=== PATIENT | male | born 1955 | race Caucasian/White ===

== ENCOUNTER 2018-09-25 23:22 | Inpatient (IN) | payer MEDICAID ==
[~2018-09-25] VITALS: Ht 190.5 cm; Wt 158.0 kg
[2018-09-25 23:36] VITALS: BP 132/54
--- NOTE | 2018-09-25 23:36 | NUR ---
TO BED # 1 AMBULATORY, REPORT GIVEN TO VERONICA DAVID
--- NOTE | 2018-09-25 23:38 | NUR ---
PT PRESENTED ER WITH C/O PAIN TO THE LEGS BIALTERAL X 1 YEAR. PT STATED THAT HE HAS HAD SWELLING BELOW THE KNEES X 1 YEAR BUT STATED THAT NOW THE SWELLING AND REDNESS HAS MOVED UP TO THE THIGHS.PT HAS REDNESS AND EDEMA. TO THE SIGHT. WARM TO TOUCH. PT IS A/O X 4. VSS; PATIENT POSITIONED FOR COMFORT; HOB ELEVATED; BEDRAILS UP X2; BED DOWN. ER MD MADE AWARE OF PT STATUS.
--- NOTE | 2018-09-25 23:38 | NUR ---
PT REFUSED PUTTING ON A HOSPITAL GOWN. MARY SANDHU MADE AWARE.
--- NOTE | 2018-09-26 00:24 | NUR ---
Patient being evaluated by physician at bedside.
[2018-09-26] MEDS ORDERED: KETOROLAC 30 MG/ML VIAL IVP ONE (00:50)
--- NOTE | 2018-09-26 00:55 | NUR ---
PT SITTING UP IN BED, VITALS STABLE.
[2018-09-26] MEDS ORDERED: NICOTINE TRANSD SYS 21 MG/24 HR PATCH TD STA (01:14)
[2018-09-26 01:17] LABS: BASOPHILS % (AUTO) 0.4 % (0.0-2.0); EOSINOPHILS # (AUTO) 0.2 K/uL (0-0.4); EOSINOPHILS % (AUTO) 2.7 % (0.0-4.0); HEMATOCRIT 53.6 % (36-52); HEMOGLOBIN 17.1 g/dL (12.0-18.0); LYMPHOCYTES # (AUTO) 1.3 K/uL (2.0-11.5); LYMPHOCYTES % (AUTO) 16.2 % (20.5-51.1); MEAN CORPUSCULAR HEMOGLOBIN 30 pg (27-31); MEAN CORPUSCULAR HGB CONC 32 g/dL (33-37); MEAN CORPUSCULAR VOLUME 92.8 fL (80-94); MONOCYTES # (AUTO) 1.2 K/uL (0.8-1.0); MONOCYTES % (AUTO) 15.1 % (1.7-9.3); NEUTROPHILS # (AUTO) 5.2 K/uL (1.8-7.7); NEUTROPHILS % (AUTO) 65.6 % (42.2-75.2); PLATELET COUNT (AUTO) 194 K/uL (140-450); RED BLOOD CELL COUNT(AUTO) 5.77 MIL/uL (4.20-6.10); RED CELL DISTRIBUTION WIDTH 15.8 % (11.6-13.7); WHITE BLOOD COUNT (AUTO) 7.9 K/uL (4.8-10.8)
[2018-09-26 01:28] LABS: ANION GAP 10.9 (8-16); CARBON DIOXIDE 28.9 mmol/L (21-32); CREATININE 1.3 mg/dL (0.7-1.3); POTASSIUM 4.8 mmol/L (3.5-5.1)
[2018-09-26] MEDS ORDERED: NICOTINE TRANSD SYS 14 MG/24 HR PATCH TD STA (01:32)
[2018-09-26 01:34] LABS: ALBUMIN 2.8 g/dL (3.4-5.0); TOTAL BILIRUBIN 0.8 mg/dL (0.0-1.0)
[2018-09-26 01:54] LABS: CREATINE KINASE MB 1.5 ng/mL (0-3.6)
[2018-09-26] MEDS ORDERED: FUROSEMIDE 40 MG/4 ML VIAL IVP SCH (02:20)
[2018-09-26] MEDS ORDERED: ASPIRIN 325 MG TAB PO ONE (02:20)
[2018-09-26] MEDS ORDERED: LORazepam 2 MG/ML VIAL IM/IVP PRN (02:30)
[2018-09-26] MEDS ORDERED: ALBUTEROL SULFATE/IPRATROPIU 3 ML SOL IH PRN (02:30)
[2018-09-26] MEDS ORDERED: MORPHINE SULFATE 4 MG/ML SYR IVP PRN (02:30)
[2018-09-26] MEDS ORDERED: HYDROcodone/APAP 5/325 MG 1 TAB TAB PO PRN (02:30)
[2018-09-26] MEDS ORDERED: DOCUSATE SODIUM 100 MG GELCAP PO PRN (02:30)
[2018-09-26] MEDS ORDERED: ONDANSETRON 4 MG/2 ML VIAL IM/IVP PRN (02:30)
[2018-09-26] MEDS ORDERED: ACETAMINOPHEN 325 MG TAB PO PRN (02:30)
[2018-09-26] MEDS ORDERED: NITROGLYCERIN 0.4 MG TAB SL PRN (02:35)
--- NOTE | 2018-09-26 02:50 | NUR ---
Patient will be admitted to care of DR. UP. Admited to TELEMETRY. Will go to room 121 B. Belongings list completed. Report to DEANN DAVID. VITALS STABLE.
--- NOTE | 2018-09-26 02:50 | NUR ---
Pt report given to DEANN DAVID. Transfer of care at this time. VITALS STABLE
--- NOTE | 2018-09-26 03:20 | NUR ---
RECEIVED REPORT FROM MOLASSES PREPARER VERONICA FOR CONTINUITY OF CARE. PT IS A/OX4, ON ROOM AIR. PT AMBULATES WITH STEADY GAIT, AND SKIN IS PINK/WARM/DRY AND INTACT, ALTHOUGH THERE ARE SOME CALLOUSES TO BILATERAL ELBOWS, AND DERMATITIS WITH SOME SCABS TO BILATERAL LOWER EXTREMITIES. PT IS ABLE TO MAKE NEEDS KNOWN, AND ABLE TO FOLLOW COMMANDS. LUNGS SOUNDS VERY DIMINISHED WITH SOME WHEEZING, HR EVEN AND REGULAR. PT HAS 20G IV TO RIGHT WRIST, ASYMPTOMATIC AND INTACT. ABDOMEN IS DISTENDED. PT REFUSES TO TAKE OFF CLOTHES AND WEAR GOWN. MRSA SWAB OBTAINED AND SENT TO LAB. PT DENIES ANY PAIN AT THIS TIME. VITAL SIGNS STABLE. NO SIGNS OF DISTRESS NOTED. PT POSITIONED FOR COMFORT. BED RAILS UP X2, BED IN LOWEST POSITION. CALL LIGHT WITHIN REACH. WILL CONTINUE TO MONITOR.
[2018-09-26 03:22] LABS: CHOL/HDL RATIO 4.8 (1-4.5); PHOSPHORUS 3.4 mg/dL (2.5-4.9); PROTHROMBIN TIME 11.5 secs (10.8-13.4)
[2018-09-26] MEDS: NACL 0.9% 1,000 ML IV SCH (03:30)
[2018-09-26 04:03] VITALS: BP 123/73
[2018-09-26] MEDS ORDERED: HEPARIN PER PHARMACY MC PRN (04:05)
[2018-09-26] MEDS ORDERED: hePARIN / DEXT 5% PREMIX 250 ML IV SCH (04:05)
[2018-09-26] MEDS ORDERED: INFLUENZA VIRUS VACCINE QUAD 0.5 ML SYR IMVAC PRN (04:35)
--- NOTE | 2018-09-26 05:04 | NUR ---
PATIENT'S O2 SATURATION WAS 71% ON ROOM AIR, PULSE 88, BILATERAL WHEEZING. PATIENT AGREED TO WEAR OXIMIZER, HOWEVER, IMMEDIATELY REMOVED IT AND ADAMANTLY REFUSED TO PLACE IT BACK IN HIS NOSE. OFFERED PATIENT OTHER OPTIONS, SUCH A SIMPLE MASK OR NON REBREATHER OR A REGULAR NASAL CANNULA, BUT PATIENT REFUSED. HE STATED HE HAS A SIMILAR DEVICE AT HOME AND DOES NOT WEAR IT. PATIENT MADE AWARE OF THE IMPORTANCE OF OXYGENATION AND STATED HIS IS EXTREMELY LOW. ALSO ATTEMPTED TO PERSUADE PATIENT TO ACCEPT A BREATHING TREATMENT AND THIS WAS REFUSED WELL. WILL CONTINUE TO MONITOR CLOSELY. NURSE CONNOLLY MADE AWARE.
--- NOTE | 2018-09-26 05:10 | NUR ---
INFORMED BY RT THAT PT SATURATING AT 71% ON ROOM AIR BUT IS ASYMPTOMATIC. RT TRIED TO PUT ON MASK AND PT WOULD REFUSE IT. TALKED TO PT AND PT STATES HE IS FINE.
--- NOTE | 2018-09-26 05:45 | NUR ---
SPOKE TO DR DENNIS ABOUT PT SPO2@71% AND PT REFUSING TO USE O2 AND ASYMPTOMATIC.
[2018-09-26] MEDS: hePARIN / DEXT 5% PREMIX 250 ML IV SCH ×2 (05:59→14:23)
--- NOTE | 2018-09-26 06:00 | NUR ---
HEPARIN DRIP STARTED WITH HELP FROM INLAYER SILVER.
--- NOTE | 2018-09-26 07:23 | NUR ---
ENDORSED PT TO DAY SHIFT RN YULIA FOR CONTINUITY OF CARE. PT IN STABLE CONDITION.
[2018-09-26 07:26] LABS: BASOPHILS # (AUTO) 0.1 K/uL (0.00-0.22); BASOPHILS % (AUTO) 0.8 % (0.0-2.0); EOSINOPHILS # (AUTO) 0.2 K/uL (0-0.4); EOSINOPHILS % (AUTO) 2.2 % (0.0-4.0); HEMATOCRIT 53.9 % (36-52); HEMOGLOBIN 17.2 g/dL (12.0-18.0); LYMPHOCYTES # (AUTO) 1.5 K/uL (2.0-11.5); LYMPHOCYTES % (AUTO) 16.3 % (20.5-51.1); MEAN CORPUSCULAR HEMOGLOBIN 30 pg (27-31); MEAN CORPUSCULAR HGB CONC 32 g/dL (33-37); MEAN CORPUSCULAR VOLUME 93.9 fL (80-94); MONOCYTES # (AUTO) 1.8 K/uL (0.8-1.0); MONOCYTES % (AUTO) 19.5 % (1.7-9.3); NEUTROPHILS # (AUTO) 5.8 K/uL (1.8-7.7); NEUTROPHILS % (AUTO) 61.2 % (42.2-75.2); PLATELET COUNT (AUTO) 201 K/uL (140-450); RED BLOOD CELL COUNT(AUTO) 5.74 MIL/uL (4.20-6.10); RED CELL DISTRIBUTION WIDTH 16.2 % (11.6-13.7); WHITE BLOOD COUNT (AUTO) 9.5 K/uL (4.8-10.8)
[2018-09-26 07:41] LABS: MAGNESIUM 2.4 mg/dL (1.8-2.4); PHOSPHORUS 4.4 mg/dL (2.5-4.9)
--- NOTE | 2018-09-26 07:55 | NUR ---
PATIENT WAS AWAKE, ALERT. RESPIRATION WAS LABORED ON ROOM AIR, COMPLAINED OF SOB, SPO2 82%. PATIENT WAS EXPLAINED THE NEED FOR OXYGEN AND THE RISK OF REFUSING. PATIENT VERBALIZED UNDERSTANDING. PATIENT WAS PLACED ON 7L OXIMIZER, SP02 97%. SKIN DRY AND WARM. IV PATENT AND INTACT. DENIED PAIN AT THIS TIME. PLAN OF CARE WAS DISCUSSED WITH PATIENT. BED AT LOW POSITION, SIDE RAILS UP. CALL LIGHT WITHIN REACH
[2018-09-26 08:00] VITALS: BP 102/66
--- NOTE | 2018-09-26 08:30 | NUR ---
PATIENT HAS BEEN SCREENED AND CATEGORIZED MODERATE NUTRITION RISK. PATIENT WILL BE SEEN WITHIN 3-5 DAYS OF ADMISSION. 09/28/18 09/30/[address]
[2018-09-26] MEDS: ALBUTEROL SULFATE/IPRATROPIU 3 ML SOL IH SCH ×3 (08:38→19:00)
[2018-09-26] MEDS: FUROSEMIDE 40 MG/4 ML VIAL IVP SCH ×2 (08:49→16:14)
[2018-09-26] MEDS: LISINOPRIL 5 MG TAB PO SCH (08:50)
[2018-09-26] MEDS: THIAMINE 100 MG TAB PO SCH (08:50)
[2018-09-26] MEDS: MULTIVITAMIN 1 TAB PO SCH (08:50)
[2018-09-26] MEDS: METOPROLOL 25 MG TAB PO SCH ×2 (08:50→20:04)
[2018-09-26] MEDS: ASPIRIN 81 MG TAB.CHEW PO SCH (08:51)
[2018-09-26] MEDS: FOLIC ACID 1 MG TAB PO SCH (08:51)
--- NOTE | 2018-09-26 08:57 | NUR ---
PT REFUSED TO WEAR O2. PT STATED AND REFUSES TO WEAR IT WHILE HE EATS NO MATTER WHAT . I EXPLAINED THE BENEFITS AND INDICATION OF WHY PT NEEDED TO WEAR O2 BUT PT STILL REFUSED. NURSE AWARE.
[2018-09-26 09:12] LABS: ANION GAP 13.8 (8-16); CARBON DIOXIDE 26.6 mmol/L (21-32); CREATININE 1.3 mg/dL (0.7-1.3); POTASSIUM 5.4 mmol/L (3.5-5.1)
--- NOTE | 2018-09-26 09:57 | NUR ---
PATIENT REFUSED TO PUT ON NASAL CANNULA, STATED HE DOES NOT NEED THIS AT THIS TIME, AND ALWAYS HAS BREATHING PROBLEM HIS WHOLE LIFE. EXPLAINED TO PATIENT RISKS OF BEING OFF OXYGEN. PATIENT VERBALIZED UNDERSTANDING, STATED HE WILL PUT IT ON LATER
[2018-09-26 12:00] VITALS: BP 102/56
--- NOTE | 2018-09-26 12:00 | NUR ---
PATIENT WAS AWAKE, ALERT. RESPIRATION EVEN, UNLABOR 4L NC. DENIED PAIN, SOB AT THIS TIME. NO DISTRESS NOTED. CALL LIGHT WITHIN REACH
--- NOTE | 2018-09-26 13:24 | NUR ---
WOUND CARE EVALUATION NOTES: REASON FOR EVALUATION: BILATERAL LE DERMATITIS SKIN ASSESSMENT DONE ON THIS 63 Y/O MALE PATIENT TO [facility], WITH INITIAL DIAGNOSIS OF LEGS PAIN. PAST MEDICAL HISTORY INCLUDE HYPERTENSION AND ASTHMA. ALL ABOVE INFORMATION WAS OBTAINED FROM THE ADMISSION H&P. LABS ARE WBC 9.5, H/H 17.2/53.9 AND GLUCOSE 115. PATIENT IS AWAKE, ORIENTED TO PERSON, PLACE, DATE AND TIME. SKIN WARM TO TOUCH WNL, TOENAILS ARE LONG AND THICKENED, FUNGALLY LOOKING, +1EDEMA, BLE NO HAIR GROWTH, BLE ARE DRY AND FLAKY, WITH FOUL ODOR AND UNABLE TO PALPATE BILATERAL PEDAL PULSES DUE TO THICKEN DEBRIS. PT. REFUSE TO BE CHECKED THE PERINEUM AND STATED EVERYTHING IS OKAY. LEFT ARM PERIPHERAL IV PATENT AND INTACT. ON ROOM AIR. NEEDS ASSISTANCE IN TURNING. INITIAL PLAN OF CARE DISCUSSED WITH PRIMARY RN AND PT. PT. ABLE TO VERBALIZE UNDERSTANDING. INTEGUMENTARY: -BLE DRY AND FLAKY, PENDING ARTERIAL AND VENOUS U/S, NO OPEN WOUNDS -BILATERAL HEELS THICK CALLUS WITH DRY CRACKED LINES RECOMMENDATIONS: -CLEANSE BILATERAL LOWER LEGS/FEET WITH MILD SOAP AND WATER, PAT DRY, APPLY HYDRAGUARD BID AND LEAVE IT OPEN TO AIR -ASSIST TO TURN AND REPOSITION PATIENT Q 2H -ASSESS AND MONITOR SKIN CONDITION DURING POSITION CHANGE. -OFFLOAD BILATERAL HEELS BY PLACING PILLOWS UNDER CALVES AT ALL TIMES, UNLESS OTHERWISE CONTRAINDICATED -PRESSURE REDISTRIBUTION SURFACE THERAPY -PODIATRY CONSULT -BLE ARTERIAL AND VENOUS U/S PENDING RESULTS -KEEP SKIN CLEAN AND DRY AT ALL TIMES. RECOMMENDATIONS DISCUSSED WITH PRIMARY RN WILL FOLLOW UP PATIENT Q7 DAYS AND PRN. PLEASE CONTACT WOUND CARE NURSE FOR ANY QUESTIONS AND CHANGES IN SKIN CONDITION.
--- NOTE | 2018-09-26 14:15 | NUR ---
PATIENT WAS AWAKE, ALERT. RESPIRATION EVEN, UNLABOR ON 4L NC. NO DISTRESS NOTED AT THIS TIME. FAMILY AT BEDSIDE. CALL LIGHT WITHIN REACH
[2018-09-26] MEDS: HYDRAGUARD CREAM TP SCH (14:17)
--- NOTE | 2018-09-26 14:30 | NUR ---
HEPARIN DRIP WAS ADJUSTED PER PROTOCOL
--- NOTE | 2018-09-26 15:23 | NUR ---
DR. DILL WAS MADE AWARE OF POTASSIUM 5.4.
[2018-09-26] MEDS: SODIUM POLYSTYRENE 15 GM/60 ML UDBTL PO SCH ×2 (15:56→16:15)
[2018-09-26 16:00] VITALS: BP 105/71
--- NOTE | 2018-09-26 16:00 | NUR ---
PATIENT WAS AWAKE, ALERT. RESPIRATION EVEN, UNLABOR ON 4L O2. DENIED PAIN, SOB AT THIS TIME. NO DISTRESS NOTED AT THIS TIME. CALL LIGHT WITHIN REACH
[2018-09-26] MEDS ORDERED: DEXTROSE 50% 50 ML SYR IVP ONE (16:25)
[2018-09-26] MEDS ORDERED: INSULIN REGULAR, HUMAN 100 UNIT/ML VIAL IVP ONE (16:25)
--- NOTE | 2018-09-26 16:32 | NUR ---
PATIENT REFUSED KAYAXELATE. DR. DILL WAS MADE AWARE
--- NOTE | 2018-09-26 18:18 | NUR ---
IVS WERE REMOVED FROM LEFT FOREARM AND RIGHT WRIST, CATHETERS INTACT. BLEEDING WERE CONTROLLED. NEW IV WAS INSERTED ON RIGHT HAND. PATIENT TOLERATED WELL
--- NOTE | 2018-09-26 18:39 | NUR ---
PATIENT AWAKE, ALERT, EATING DINNER COMFORTABLY. RESPIRATION EVEN, UNALBOR ON ROOM AIR. PATIENT WAS INSTRUCTED TO PUT ON O2. PATIENT CONTINUED TO REFUSE AT THIS TIME. NO DISTRESS NOTED
--- NOTE | 2018-09-26 19:19 | NUR ---
ENDORSEMENT GIVEN TO POWER TRANSFORMER INSPECTOR NURSE. PATIENT IS STABLE AT THIS TIME
--- NOTE | 2018-09-26 19:19 | NUR ---
RECEIVED BEDSIDE REPORT FROM FRANKIE CAR, PATIENT IN BED, ON 4 L O2 VIA NC, PATIENT REFUSES TO WEAR FALL RISK GOWN, STATES HE IS NOT A FALL RISK. C/O THAT HE HAS PROBLEMS SLEEPING AND WANTS SLEEPING AID. HEPARIN INFUSING IN RIGHT HAND AT 1420 U/HR ACCORDING TO PROTOCOL. NOTED 3 + PITTING EDEMA IN BOTH LOWER LEGS, V/S TAKEN ALL WITHIN BASELINE, DENIES PAIN. CALL LIGHT WITHIN REACH WILL CONTINUE TO MONITOR.
[2018-09-26 20:00] VITALS: BP 109/66
[2018-09-26] MEDS ORDERED: BLOOD GLUCOSE MONITORING 1 DEV DEV FS SCH (20:00)
[2018-09-26] MEDS: ATORVASTATIN 20 MG TAB PO SCH (20:04)
[2018-09-26] MEDS: ZOLPIDEM 5 MG TAB PO PRN (20:04)
--- NOTE | 2018-09-26 20:04 | NUR ---
APTT 29.9 ADJUSTED HEPARIN ACCORDING TO PROTOCOL.
--- NOTE | 2018-09-26 21:00 | NUR ---
DUE MEDICATIONS GIVEN PATIENT TOLERATED WELL.
[2018-09-26] MEDS ORDERED: SODIUM POLYSTYRENE 15 GM/60 ML UDBTL PO SCH (22:00)
--- NOTE | 2018-09-26 22:10 | NUR ---
KAYEXALATE GIVEN FOR K 5.4. WILL CONTINUE TO MONITOR.
[2018-09-27] VITALS: BP 130/78
--- NOTE | 2018-09-27 | NUR ---
PATIENT O2 SAT DROPS FROM 90-88% ADVISED TO WEAR O2. PATIENT REFUSED TO WEAR O2 AND TELE MONITOR. DR DENNIS AWARE.
--- NOTE | 2018-09-27 00:30 | NUR ---
HEPARIN CONTINUING INFUSE AT 1840 UNITS PER HR. WILL CONTINUE TO MONITOR.
[2018-09-27 00:41] LABS: ANION GAP 12.1 (8-16); CARBON DIOXIDE 29.6 mmol/L (21-32); CREATININE 1.1 mg/dL (0.7-1.3); POTASSIUM 4.7 mmol/L (3.5-5.1)
[2018-09-27] MEDS: HYDRAGUARD CREAM TP SCH ×2 (00:53→12:58)
[2018-09-27] MEDS: NACL 0.9% 1,000 ML IV SCH (01:43)
--- NOTE | 2018-09-27 01:45 | NUR ---
PATIENT IN BED, EDUCATION PROVIDED REGARDING WEARING O2 AND TELE BOX, PATIENT STATED "NO ITS NOT NECESSARY".
--- NOTE | 2018-09-27 03:00 | NUR ---
DR DENNIS STATED TO WAIT FOR VALUE OF APTT TO START NEW BAG OF HEPARIN. WILL START ONCE VALUE IS UPDATED.
[2018-09-27 04:00] VITALS: BP 128/70
[2018-09-27] MEDS: hePARIN / DEXT 5% PREMIX 250 ML IV SCH ×2 (04:19→12:32)
--- NOTE | 2018-09-27 04:30 | NUR ---
APTT 40.2 ADJUSTED RATE ACCORDING TO HEPARIN PROTOCOL.
--- NOTE | 2018-09-27 06:13 | NUR ---
PATIENT SOB ADVISED TO PUT ON O2 PATIENT STATED NO I ALREADY TOLD YOU I DONT NEED IT.
--- NOTE | 2018-09-27 07:23 | NUR ---
ENDORSED PATIENT TO DAY SHIFT NURSE, PATIENT STABLE.
--- NOTE | 2018-09-27 07:24 | NUR ---
RECEIVE REPORT FROM THE MANAGER WIND NURSE AT BEDSIDE FOR CONTINUITY OF CARE. PT IS AWAKE AND ORIENTED. INTRODUCED MYSELF AND UPDATED THE BOARD. PT IS SITTING UP ON THE SIDE OF BED WITH FEET DANGLING. PT IS AMBULATORY. SKIN -BLE EDEMATOUS, NON-PITTING. SKIN VERY TIGHT AND DRY. LBM 09/27/18. IV ON R WRIST 20G, HEPARIN DRIP 2050U/HR. NEXT PTT DRAW AT 1030. DR WERNER ON CONSULT FOR OLIGURIA. PER MANAGER WIND, PT REFUSED TELEMONITOR, NC, REFUSES TO LIE DOWN IN BED. WILL CONTINUE TO MONITOR PT.
[2018-09-27] MEDS: ALBUTEROL SULFATE/IPRATROPIU 3 ML SOL IH SCH ×3 (07:47→19:00)
[2018-09-27 07:50] LABS: ANION GAP 13.4 (8-16); CARBON DIOXIDE 27.8 mmol/L (21-32); POTASSIUM 5.2 mmol/L (3.5-5.1)
[2018-09-27 07:52] LABS: PHOSPHORUS 3.8 mg/dL (2.5-4.9)
[2018-09-27 08:00] VITALS: BP 126/77
[2018-09-27] MEDS ORDERED: SODIUM POLYSTYRENE 15 GM/60 ML UDBTL PO SCH (09:00)
[2018-09-27] MEDS: FUROSEMIDE 40 MG/4 ML VIAL IVP SCH (09:32)
[2018-09-27] MEDS: LISINOPRIL 5 MG TAB PO SCH (09:33)
[2018-09-27] MEDS: MULTIVITAMIN 1 TAB PO SCH (09:33)
[2018-09-27] MEDS: METOPROLOL 25 MG TAB PO SCH ×2 (09:33→21:17)
[2018-09-27] MEDS: FOLIC ACID 1 MG TAB PO SCH (09:34)
[2018-09-27] MEDS: THIAMINE 100 MG TAB PO SCH (09:34)
[2018-09-27] MEDS: ASPIRIN 81 MG TAB.CHEW PO SCH (09:34)
--- NOTE | 2018-09-27 09:40 | NUR ---
STUDENT RN AND INSTRUCTOR ADMINISTERED MORNING MEDS. PT TOLERATED WELL. WILL CONTINUE TO MONITOR PT.
--- NOTE | 2018-09-27 09:55 | NUR ---
SENT URINE SAMPLE TO LAB.
--- NOTE | 2018-09-27 10:03 | NUR ---
LAB CAME AND ANI BLOOD, PTT FOR HEPARIN DRIP.
[2018-09-27 10:14] LABS: BASOPHILS # (AUTO) 0.3 K/uL (0.00-0.22); BASOPHILS % (AUTO) 3.8 % (0.0-2.0); EOSINOPHILS # (AUTO) 0.2 K/uL (0-0.4); EOSINOPHILS % (AUTO) 2.3 % (0.0-4.0); HEMOGLOBIN 16.4 g/dL (12.0-18.0); LYMPHOCYTES % (AUTO) 11.6 % (20.5-51.1); MEAN CORPUSCULAR HEMOGLOBIN 30 pg (27-31); MEAN CORPUSCULAR HGB CONC 32 g/dL (33-37); MONOCYTES # (AUTO) 0.9 K/uL (0.8-1.0); MONOCYTES % (AUTO) 10.6 % (1.7-9.3); NEUTROPHILS # (AUTO) 6.3 K/uL (1.8-7.7); NEUTROPHILS % (AUTO) 71.7 % (42.2-75.2); PLATELET COUNT (AUTO) 188 K/uL (140-450); RED BLOOD CELL COUNT(AUTO) 5.54 MIL/uL (4.20-6.10); RED CELL DISTRIBUTION WIDTH 15.6 % (11.6-13.7); WHITE BLOOD COUNT (AUTO) 8.8 K/uL (4.8-10.8)
[2018-09-27 10:37] LABS: APPEARANCE,URINE CLEAR (CLEAR); BILIRUBIN,URINE NEGATIVE (NEGATIVE); BLOOD, URINE NEGATIVE (NEGATIVE); COLOR,URINE YELLOW (YELLOW); LEUKOCYTE ESTERASE ,URINE NEGATIVE (NEGATIVE); NITRITE, URINE NEGATIVE (NEGATIVE); PH,URINE 5.5 (5.0-9.0); UGLUCOSE NEGATIVE (NEGATIVE)
[2018-09-27 10:38] LABS: BARBITURATE, URINE NEG. ng/ml (NEG <=200); BENZODIAZEPINE, URINE NEG. ng/mL (NEG <=200); CANNABINOID, URINE NEG. ng/mL (NEG <=50); COCAINE, URINE NEG. ng/mL (NEG <=300); OPIATE, URINE NEG. ng/mL (NEG <=2000); PHENCYCLIDINE SCREEN,URINE NEG. ng/mL (NEG <=25)
--- NOTE | 2018-09-27 10:57 | NUR ---
PTT IS BACK AT 39.6. CALLED PHARMACIST. SPOKE TO IGGY. PER IGGY, GIVE 3200 HEPARIN BOLUS AND THE CORRECT RATE IS 18.3ML/HR. WILL CHANGE. IGGY WILL NOTIFY
--- NOTE | 2018-09-27 11:25 | NUR ---
ADMINISTERED 3200U OF HEPARIN BOLUS AND DECREASED TO 1840U/HR. PT SLEEPING. WILL CONTINUE TO MONITOR PT. Addendum: 09/27/18 at 1234 by Najma Metzger RN FOR SOME REASON, IT DID NOT GET SAVED. HAD TO RE INPUT WITH DIFFERENT TIME. CORRECT TIME IS 4555.
[2018-09-27 12:00] VITALS: BP 131/67
--- NOTE | 2018-09-27 13:43 | NUR ---
PT IS SITTING UP, VISITING WITH DR Telma PASTOR, TRANSPORTATION ESCORT AND DR. PRETTY, RESIDENT.
--- NOTE | 2018-09-27 14:30 | NUR ---
PT REQUESTING SHOWER. NOTIFIED . ORDER IN. GAVE CLEAN TOWELS AND SHOWER GEL AND NEW GOWN. REMOVED TELE MONITOR, WRAPPED UP THE IV SITE FOR WATERPROOFING. AMBULATED PT TO THE SHOWER. EDUCATED PT RE CALL LIGHT AND TO KEEP SKID PROOF SOCKS ON DURING SHOWER. WILL CONTINUE TO MONITOR PT.
--- NOTE | 2018-09-27 14:44 | NUR ---
ATTEMPTED TO ADMINISTER BREATHING TX FOR 2ND TIME PT IN SHOWER.
--- NOTE | 2018-09-27 15:30 | NUR ---
PT BACK IN BED. REAPPLYING THE HYDROGUARD TO BLE AND HEELS. PT REFUSED TELE MONITOR. PER PT, I'M GOING HOME TOMORROW MORNING. I DON'T WANT IT. NOTIFIED .
--- NOTE | 2018-09-27 15:55 | NUR ---
SPOKE TO DR PRETTY TO CALL SISTER, LAKIA. WHEN SHE SPOKE TO PT EARLIER BEFORE HIS SHOWER, HE WAS NOT ABLE TO EXPLAIN WHAT DR PASTOR HAD GONE OVER. PER PT, "THEY CAN'T DO ANYTHING FOR ME HERE, THEY ONLY TX BABIES." SISTER WOULD LIKE TO KNOW THE PLAN.
[2018-09-27 16:00] VITALS: BP 108/55
[2018-09-27] MEDS ORDERED: METOLAZONE 5 MG TAB PO SCH (16:12)
[2018-09-27] MEDS ORDERED: FUROSEMIDE 20 MG/2 ML VIAL IVP SCH (17:00)
--- NOTE | 2018-09-27 19:00 | NUR ---
HAD AN EXPLOSIVE UNCONTROLLABLE BM AFTER LASIX. PT IN SHOWER. WILL ENDORSE PT TO THE STRUCTURAL SHOP HELPER NURSE.
--- NOTE | 2018-09-27 19:23 | NUR ---
PT REFUSED HHNTX , YING WORK, EVERY THINK
--- NOTE | 2018-09-27 19:34 | NUR ---
ENDORSED PT TO THE KISS SETTER HAND NURSE AT BEDSIDE FOR CONTINUITY OF CARE. ENDORSED TO KISS SETTER HAND RN THAT PT'S RIDE IS COMING AROUND 0900. IF D/C ISN'T READY, HE WILL GO AMA PER PT.
--- NOTE | 2018-09-27 19:35 | NUR ---
RECEIVED PT JUST GOT BACK FROM TAKING A SHOWER, AAOX4, VITAL SIGNS STABLE, SAT-84% ON ROOM AIR, NO RESP DISTRESS NOTED, DENIES PAIN, REFUSED OXYGEN VIA NASAL CANNULA STATED "IM SHEELA, I DON'T NEED THAT", ASK WHY HE IS REFUSING, "I'VE BEEN SHEELA FOR A LONG TIME WITHOUT IT, AND I DON'T LIKE ANYTHING STICKING INTO MY NOSE" OFFERED TO SWITCH TO PEDIATRIC NC OR MASK BUT PT STILL REFUSING, ADVISE TO USE OXYGEN IF HE STARTED HAVING SOB, PT VERBALIZED UNDERSTANDING, PLAN OF CARE DISCUSS, PT REFUSING IVF AT THIS TIME STATING HE DOESN'T NEED IT, SAFETY MEASURES IN PLACE, CALL LIGHT WITHIN IN REACH.
[2018-09-27 20:00] VITALS: BP 102/62
[2018-09-27] MEDS ORDERED: CLINDAMYCIN 600 MG/4 ML VIAL ONE (21:10)
[2018-09-27] MEDS: ATORVASTATIN 20 MG TAB PO SCH (21:15)
[2018-09-27] MEDS: ZOLPIDEM 5 MG TAB PO PRN (21:15)
[2018-09-27] MEDS: CLINDAMYCIN 600 MG in DEXTROSE 5% 50 ML IV SCH (21:16)
--- NOTE | 2018-09-27 21:30 | NUR ---
DUE MEDS ADMINISTERED, CLINDAMYCIN IVPB STARTED WITH EDUCATION PROVIDED, MEDICATED FOR SLEEP WITH AMBIEN PO ORDERED, ALL NEEDS ATTENDED.
--- NOTE | 2018-09-27 22:01 | NUR ---
SEEN PT WENT TO THE TOILET WITH IV LINE DISCONNECTED, 10ML IVPB CLINDAMYCIN REMAINING, WILL RECONNECT THE IV ONCE HIS BACK IN BED, PT REFUSED STATED "I DON'T NEED MORE, I HAD ENOUGH", EXPLAIN RISK AND BENEFITS BUT STILL REFUSING, MONITORED CLOSELY.
[2018-09-28] VITALS: BP 129/73
[2018-09-28] MEDS: HYDRAGUARD CREAM TP SCH (00:17)
--- NOTE | 2018-09-28 00:39 | NUR ---
ROUNDS MADE AWARE, SEEN PT AWAKE SITTING ON SIDE OF BED, NO DISTRESS NOTED, NO NEEDS AT THIS TIME, CONTINUE TO MONITOR CLOSELY.
[2018-09-28] MEDS: NACL 0.9% 1,000 ML IV SCH (02:29)
[2018-09-28 04:00] VITALS: BP 135/69
[2018-09-28] MEDS: CLINDAMYCIN 600 MG in DEXTROSE 5% 50 ML IV SCH (04:17)
[2018-09-28] MEDS ORDERED: CLINDAMYCIN 600 MG/4 ML VIAL ONE (04:19)
--- NOTE | 2018-09-28 04:20 | NUR ---
VITAL SIGNS STABLE, SAT-83%, ENCOURAGE TO PUT ON NASAL CANNULA BUT REFUSED EVEN AFTER EDUCATION PROVIDED REGARDING RISK AND BENEFITS, NO SIGNS OF RESP DISTRESS NOTED, DUE CLINDAMYCIN IVPB ADMINISTERED, COMPRESSION BANDAGE APPLIED TO BLE, TOLERATED WELL, MONITORED CLOSELY.
--- NOTE | 2018-09-28 07:10 | NUR ---
RECEIVED PATIENT AWAKE, SITTING AT THE SIDE OF HIS BED. NO S/S OF DISTRESS NOTED. BLE WRAPPED WITH CLEAN DRESSING. NO IV LINE IN PLACE. PATIENT STATES "IM LEAVING TODAY."
--- NOTE | 2018-09-28 07:25 | NUR ---
PT AWAKE SITTING ON SIDE OF BED, NO DISTRESS NOTED, REPORT GIVEN TO FRANKIE AMBROSIO FOR CONTINUITY OF CARE.
[2018-09-28 08:00] VITALS: BP 108/68
[2018-09-28] MEDS: ALBUTEROL SULFATE/IPRATROPIU 3 ML SOL IH SCH (08:00)
--- NOTE | 2018-09-28 08:01 | NUR ---
PT REFUSED BREATHING TX AT THIS TIME. BENEFITS/INDICATIONS EXPLAINED TO PT AND PT STILL REFUSED. PT NOT SOB AT THIS TIME. NO WHEEZING HEARD ON AUSCULTATION.
--- NOTE | 2018-09-28 08:45 | NUR ---
PATIENT LEFT AMA. DR JOHN EXPLAINED RISKS OF LEAVING AMA. PATIENT VERBALIZED UNDERSTANDING. PATIENT SIGNED AMA PAPER. PATIENT DISCONTINUED HIS IV LINE. PATIENT LEFT WITH ALL HIS BELONGINGS. PATIENT LEFT IN STABLE CONDITION
[2018-09-28] MEDS ORDERED: METOLAZONE 5 MG TAB PO SCH (09:00)
[2018-09-28] MEDS ORDERED: LACTOBACILLUS RHAMNOSUS GG 1 EACH CAP PO SCH (09:00)
[2018-09-28] MEDS ORDERED: CLINDAMYCIN PHOS 600MG/D5W PM 50 ML IV SCH (13:00)
--- NOTE | 2018-10-01 02:00 | NUR ---
TALKED TO ISABELLE THE REPORTING LEAD, RATE WAS RUNNING AT 2050 U/HR, SAME DAY SHIFT NURSE STATED, DOCUMENTATION ON EMAR WAS INCORRECT EITHER NOT SCANNED OR ENTERED PROPERLY. CHARGE NURSE LINCLON AWARE, REPORTING LEAD ISABELLE AWARE, PATIENT UNHARMED.
== END 2018-09-28 08:45 | disposition left against medical advice (07) | DRG 190 ==
LOC: MED 23:22 → MTU 09-26 02:33
PROVIDERS: ADMIT General Practice; ATTEND General Practice
DX: I21.A1 Myocardial infarction type 2 (principal); N17.0 Acute kidney failure with tubular necrosis; E43 Unspecified severe protein-calorie malnutrition; I50.43 Acute on chronic combined systolic (congestive) and diastolic (congestive) heart failure; E11.65 Type 2 diabetes mellitus with hyperglycemia; D68.59 Other primary thrombophilia; E66.01 Morbid (severe) obesity due to excess calories; L03.115 Cellulitis of right lower limb; I24.9 Acute ischemic heart disease, unspecified; F17.200 Nicotine dependence, unspecified, uncomplicated; E78.1 Pure hyperglyceridemia; I87.2 Venous insufficiency (chronic) (peripheral); Z60.2 Problems related to living alone; F12.90 Cannabis use, unspecified, uncomplicated; I11.0 Hypertensive heart disease with heart failure; J45.909 Unspecified asthma, uncomplicated; E87.5 Hyperkalemia; Z53.21 Procedure and treatment not carried out due to patient leaving prior to being seen by health care provider; L03.116 Cellulitis of left lower limb; Z68.38 Body mass index [BMI] 38.0-38.9, adult; Z91.14 Patient's other noncompliance with medication regimen; Z79.899 Other long term (current) drug therapy
CPT/HCPCS: 36415; 70450; 71045; 80048; 80053; 80305; 81003; 82550; 82553; 82948; 83036; 83690; 83735; 83880; 84100; 84134; 84443; 84484; 85025; 85610; 85730; 87081; 93005; 93925; 93970; 94640; 96374; 99285; G0482; J1644; J1815; J1885; J1940; J3490; J7030; J7060; J7620; Q0092

== ENCOUNTER 2019-04-22 14:36 | Inpatient (IN) | payer MEDICAID ==
[~2019-04-22] VITALS: Ht 188 cm; Wt 156.5 kg
[2019-04-22 14:40] VITALS: BP 115/73
--- NOTE | 2019-04-22 14:45 | NUR ---
PT C/O SOB, PALPITATIONS, WEAKNESS, CP STARTING 1 WEEK AGO. PT REPORTS THAT HE HAS A HISTORY OF EDEMA THAT HE TAKES LASIX FOR. PT IS BREATHING LABORED. MOTTLED, EDEMAOUS +3, AND ERYTHEMAOUS SKIN AND SCARES NOTICED ON BOTH LOWER LEGS. ERYTHEMA +3 ON BOTH THIGHS NOTICED. DENIES N/V/D; AAOX4 WITH EVEN AND AMBULATORY WITH [facility] COACH; LUNGS WHEEZING BL; PT DENIES ANY FEVER, CP AT THIS TIME; PATIENT STATES PAIN OF 0/10 AT THIS TIME; VSS; PATIENT POSITIONED FOR COMFORT; HOB ELEVATED; BEDRAILS UP X2; BED DOWN. ER MD MADE AWARE OF PT STATUS.
[2019-04-22] MEDS ORDERED: ALBUTEROL 0.083% 2.5 MG/3 ML NEBU INH ONE (14:55)
[2019-04-22] MEDS ORDERED: MAG SULF 2000 MG/WATER PREMIX 50 ML IV ONE (14:55)
[2019-04-22] MEDS ORDERED: BUMETANIDE 1 MG/4 ML VIAL IV ONE (15:00)
[2019-04-22 15:15] VITALS: BP 110/63
--- NOTE | 2019-04-22 15:15 | NUR ---
PLACED ON BIPAP TO MASK WITH SETTINGS NOTED ORDERED BY ELENA RIVERA
[2019-04-22 15:17] LABS: HEMOGLOBIN 17.2 g/dL (12.0-18.0); MEAN CORPUSCULAR HEMOGLOBIN 29 pg (27-31)
--- NOTE | 2019-04-22 15:17 | NUR ---
UNABLE TO EDIT RATE 15 I-TOME 0.85 Addendum: 04/22/19 at 1837 by Jeremy Andrea RT TOME = TIME
--- NOTE | 2019-04-22 15:19 | NUR ---
[facility] THERAPY AND RESPIRATORY DRUG GIVEN IN LINE ORDERED
[2019-04-22] MEDS ORDERED: FURO-570 PO (15:25)
[2019-04-22] MEDS ORDERED: LISI-420 PO (15:26)
[2019-04-22 15:30] LABS: HEMATOCRIT 53.8 % (36-52); MEAN CORPUSCULAR HGB CONC 32 g/dL (33-37); MEAN CORPUSCULAR VOLUME 90.3 fL (80-94); PLATELET COUNT (AUTO) 143 K/uL (140-450); RED BLOOD CELL COUNT(AUTO) 5.95 MIL/uL (4.20-6.10); RED CELL DISTRIBUTION WIDTH 17.8 % (11.6-13.7); WHITE BLOOD COUNT (AUTO) 8.5 K/uL (4.8-10.8)
[2019-04-22 15:34] LABS: ANION GAP 11.6 (8-16); CARBON DIOXIDE 28.5 mmol/L (21-32); CREATININE 1.1 mg/dL (0.7-1.3); POTASSIUM 4.1 mmol/L (3.5-5.1)
[2019-04-22 15:45] LABS: TOTAL BILIRUBIN 1.3 mg/dL (0.0-1.0)
[2019-04-22 15:48] LABS: EOSINOPHILS % (MANUAL) 2 % (0-4); LYMPHOCYTES % (MANUAL) 18 % (20-46); MONOCYTES % (MANUAL) 11 % (5-12)
[2019-04-22] MEDS: ONDANSETRON 4 MG/2 ML VIAL IVP ONE ×2 (15:55→16:57)
[2019-04-22] MEDS ORDERED: LIDOCAINE JELLY 2% 30 ML TUBE TP ONE (15:55)
[2019-04-22] MEDS ORDERED: MORPHINE SULFATE 2 MG/ML SYR IVP ONE (15:55)
--- NOTE | 2019-04-22 16:00 | NUR ---
PT URINATED 480 CC, YELLOW CLEAR URINE.
--- NOTE | 2019-04-22 16:07 | NUR ---
PT DOES NOT WISH TO HAVE DEWITT INSERTED. MARY SANDHU MADE AWARE AND OK W/ NO DEWITT. PT GIVEN URINAL TO VOID.
--- NOTE | 2019-04-22 16:30 | NUR ---
PT REQUESTS ICE CHIPS, ER OKAYED, PT TOLERATING.
[2019-04-22] MEDS ORDERED: ALBUTEROL SULFATE/IPRATROPIU 3 ML SOL IH PRN (17:10)
[2019-04-22] MEDS ORDERED: LORazepam 2 MG/ML VIAL IM/IVP PRN (17:10)
[2019-04-22] MEDS ORDERED: ONDANSETRON 4 MG/2 ML VIAL IM/IVP PRN (17:10)
[2019-04-22] MEDS ORDERED: DOCUSATE SODIUM 100 MG GELCAP PO PRN (17:10)
[2019-04-22] MEDS ORDERED: ACETAMINOPHEN 325 MG TAB PO PRN (17:10)
[2019-04-22 17:41] LABS: PROTHROMBIN TIME 11.9 secs (10.8-13.4)
--- NOTE | 2019-04-22 17:42 | NUR ---
Pt transferred to Tele BED 119A via BED WITH FRANKIE SANDOVAL .
--- NOTE | 2019-04-22 17:45 | NUR ---
TRANSFERRED PATIENT TO [facility] 119-B ON BIPAP TO MASK WITH OXYGEN CONNECTED E-TANK (ADEQUATE PSI LEVELS) TOLERATED WELL WITHOUT INCIDENT SATURATION 99% HR 87
[2019-04-22 17:50] VITALS: BP 113/70
--- NOTE | 2019-04-22 17:50 | NUR ---
PATIENT WAS TRANSFERRED FROM ER. REPORT WAS GIVEN AT BEDSIDE. PATIENT WAS AWAKE, ALERT, AMBULATED SELF TO BED. PATIENT REFUSED TO HAVE BIPAP MASK ON, 3L OXYGEN VIA NC WAS PUT ON. SKIN DRY AND WARM. IV PATENT AND INTACT. COMPLAINED OF BLE PAIN 7/10, WILL MEDICATE PER ORDER. PATIENT WAS ORIENTED TO ROOM, STAFF, AND CALL LIGHT. PLAN OF CARE WAS DISCUSSED WITH PATIENT. BED AT LOW POSITION, SIDE RAILS UP. CALL LIGHT WITHIN REACH
--- NOTE | 2019-04-22 17:50 | NUR ---
Patient will be admitted Telemetry. Will go to room 119A. Belongings list completed. Report to FRANKIE Stokes.
[2019-04-22 17:51] LABS: MAGNESIUM 1.7 mg/dL (1.8-2.4); PHOSPHORUS 2.8 mg/dL (2.5-4.9); THYROID STIMULATING HORMONE 1.9 uIU/mL (0.34-3.74)
--- NOTE | 2019-04-22 17:53 | NUR ---
AWAKE AND ALERT PATIENT REQUEST OFF BIPAP BREAK AT THIS TIME NO SIGNIFICANT SOB NOTED PLACED ON SUPPLEMENTAL OXYGEN AT 3 LPM VIA NC SATURATION 96%
[2019-04-22] MEDS: MORPHINE SULFATE 2 MG/ML SYR IVP PRN (18:20)
--- NOTE | 2019-04-22 18:48 | NUR ---
CONSENT FOR CT CHEST WAS OBTAINED AT BEDSIDE SIGNED BY PATIENT
--- NOTE | 2019-04-22 19:24 | NUR ---
ENDORSEMENT GIVEN TO COMBINATION MACHINE TOOL OPERATOR NURSE. PATIENT IS STABLE AT THIS TIME
[2019-04-22] MEDS: NACL 0.9% 250 ML IV SCH (19:25)
--- NOTE | 2019-04-22 19:25 | NUR ---
RECEIVED PT FROM ALEJANDRO DAVID PT OBESE AAOX4 AMBULATORY ON TELEMETRY SR, ON BIBPAP IPAP10/EPAP 5 NOT SOB NOTED, BLE EDEMA AND MULTIPLES OPEN WOUNDS AND SCABS EDEMA 2+, IV ON RT AC PATENT, PT IS ORIENTED TO THE FLOOR CALL LIGHT WITHIN REACH
[2019-04-22 20:00] VITALS: BP 115/80
[2019-04-22] MEDS: methylPREDNISolone SS 40 MG/ML VIAL IVP SCH (20:40)
[2019-04-22] MEDS: HYDROcodone/APAP 5/325 MG 1 TAB TAB PO PRN (20:40)
[2019-04-22 20:54] LABS: APPEARANCE,URINE CLEAR (CLEAR); BILIRUBIN,URINE NEGATIVE (NEGATIVE); BLOOD, URINE NEGATIVE (NEGATIVE); COLOR,URINE YELLOW (YELLOW); LEUKOCYTE ESTERASE ,URINE NEGATIVE (NEGATIVE); NITRITE, URINE NEGATIVE (NEGATIVE); UGLUCOSE NEGATIVE (NEGATIVE)
[2019-04-22] MEDS ORDERED: FUROSEMIDE 40 MG/4 ML VIAL IVP ONE (21:00)
--- NOTE | 2019-04-22 21:00 | NUR ---
PT ON BIAPAP ON TELMETRY SR NOT DISTRESS NOTED VOIDING WELL
[2019-04-22 21:22] LABS: BARBITURATE, URINE NEG. ng/ml (NEG <=200); BENZODIAZEPINE, URINE NEG. ng/mL (NEG <=200); CANNABINOID, URINE NEG. ng/mL (NEG <=50); COCAINE, URINE NEG. ng/mL (NEG <=300); OPIATE, URINE NEG. ng/mL (NEG <=2000); PHENCYCLIDINE SCREEN,URINE NEG. ng/mL (NEG <=25)
[2019-04-22] MEDS: ALBUTEROL SULFATE/IPRATROPIU 3 ML SOL IH SCH (23:50)
[2019-04-23] VITALS (7 sets, daily range): BP systolic 101–124; BP diastolic 60–81
--- NOTE | 2019-04-23 | NUR ---
PT HAS BEEN MO;NITORING CLOSE ON BIPAP NOT SOB NOTED GETTING SLEEP
[2019-04-23] MEDS ORDERED: MAG SULF 2000 MG/WATER PREMIX 50 ML IV ONE (01:55)
--- NOTE | 2019-04-23 03:00 | NUR ---
SPONGE BATH GIVEN LINEN CHANGED REPOSITIONED Q2H NOT FEVER VSS
[2019-04-23] MEDS: methylPREDNISolone SS 40 MG/ML VIAL IVP SCH ×3 (05:43→20:22)
--- NOTE | 2019-04-23 06:00 | NUR ---
PT AWAKE, REPOSITIONED Q2H NOT SOB NOTED PT WILL BE ENDORSED TO DAY SHIF NURSE FOR CONTINUITY OF CARE
[2019-04-23 06:49] LABS: ANION GAP 10.1 (8-16); CARBON DIOXIDE 32.7 mmol/L (21-32); POTASSIUM 4.8 mmol/L (3.5-5.1)
[2019-04-23 07:02] LABS: CHOL/HDL RATIO 2.1 (1-4.5); MAGNESIUM 2.3 mg/dL (1.8-2.4); PHOSPHORUS 3.8 mg/dL (2.5-4.9)
--- NOTE | 2019-04-23 07:20 | NUR ---
RECEIVED BEDSIDE REPORT FROM DAM ATTENDANT NURSE. PATIENT IS AWAKE, ALERT AND ORIENTEDX4. NO SIGNS OF DISTRESS ON BIPAP. SKIN HAS SCABS AND EDEMA BLE, LLE WOUND. ELEVATED LEGS ON PILLOWS. PATIENT HAS WEAKNESS, FALL RISK PROTOCOL IN PLACE. PATIENT NEEDS LARGE GOWN NO LARGE YELLOW GOWNS AVAILABLE AT THIS TIME, PATIENT REFUSES TO WEAR SOCKS ALSO. IV ON R AC 20G SL. CLEAN, DRY AND INTACT. POSTED SIGN OF 1.5 L FLUID RESTRICTION. PATIENT IS CONTINENT, URINAL AT BEDSIDE. BED IN LOW POSITION. CALL LIGHT WITHIN REACH. WILL CONTINUE TO MONITOR THE PATIENT.
[2019-04-23] MEDS: ALBUTEROL SULFATE/IPRATROPIU 3 ML SOL IH SCH ×3 (07:27→19:47)
[2019-04-23 08:10] LABS: BASOPHILS % (AUTO) 0.1 % (0.0-2.0); EOSINOPHILS % (AUTO) 0.2 % (0.0-4.0); HEMOGLOBIN 17.3 g/dL (12.0-18.0); LYMPHOCYTES # (AUTO) 0.4 K/uL (2.0-11.5); LYMPHOCYTES % (AUTO) 8.9 % (20.5-51.1); MEAN CORPUSCULAR HEMOGLOBIN 29 pg (27-31); MEAN CORPUSCULAR HGB CONC 31 g/dL (33-37); MEAN CORPUSCULAR VOLUME 91.8 fL (80-94); MONOCYTES # (AUTO) 0.3 K/uL (0.8-1.0); MONOCYTES % (AUTO) 6.8 % (1.7-9.3); NEUTROPHILS # (AUTO) 3.5 K/uL (1.8-7.7); PLATELET COUNT (AUTO) 160 K/uL (140-450); RED BLOOD CELL COUNT(AUTO) 5.99 MIL/uL (4.20-6.10); RED CELL DISTRIBUTION WIDTH 17.5 % (11.6-13.7); WHITE BLOOD COUNT (AUTO) 4.1 K/uL (4.8-10.8)
--- NOTE | 2019-04-23 08:59 | NUR ---
CALLED [facility] CT SCAN SPOKE WITH KERRY REGARDING THE CT ANGIO PER TRAY IF PATIENT IS LARGE ON THE ABDOMEN HE WON'T FIT IN THEIR MACHINE , CHECKED AND CLARIFIED WITH [employer] TOOLS PROGRAMMER PT IS LARGE SIZE ON THE ABDOMEN AND WONT FIT . NOTIFIED DR ROSE AND WILL F/U.
[2019-04-23] MEDS ORDERED: LACTOBACILLUS RHAMNOSUS GG 1 EACH CAP PO SCH (09:00)
[2019-04-23] MEDS ORDERED: FUROSEMIDE 40 MG/4 ML VIAL IVP SCH ×3 (09:00→22:00)
[2019-04-23] MEDS ORDERED: AZITHROMYCIN 250 MG TAB PO SCH (09:00)
[2019-04-23] MEDS ORDERED: LISINOPRIL 20 MG TAB PO SCH (09:00)
--- NOTE | 2019-04-23 09:20 | NUR ---
PATIENT HAS BEEN SCREENED AND CATEGORIZED HIGH NUTRITION RISK. PATIENT WILL BE SEEN WITHIN 1-2 DAYS OF ADMISSION. 04/23/19-04/24/[address]
--- NOTE | 2019-04-23 09:56 | NUR ---
ADMINISTERED MEDS. EDUCATED ON SIDE EFFECTS. PATIENT TOLERATED WELL. WILL CONTINUE TO MONITOR THE PATIENT
--- NOTE | 2019-04-23 10:04 | NUR ---
I RECEIVED A CALL FROM [facility] SPOKE WITH ETHAN REGARDING THE HIGHER LEVEL OF CARE, PROVIDE DR ROSE'S CELL PHONE AND UPDATE PT INFORMATION WELL.
--- NOTE | 2019-04-23 10:20 | NUR ---
IV LEAKING. REMOVED, TIP INTACT. PLACED NEW IV ON R FA 22G. WILL CONTINUE TO MONITOR THE PATIENT.
[2019-04-23] MEDS: MORPHINE SULFATE 2 MG/ML SYR IVP PRN ×2 (10:58→20:23)
--- NOTE | 2019-04-23 11:07 | NUR ---
ULTRASOUND TECHS AT BEDSIDE. WILL CONTINUE TO MONITOR THE PATIENT
--- NOTE | 2019-04-23 11:14 | NUR ---
I RECEIVED A CALL FROM [facility] SPOKE WITH GORAN AND PROVIDE THE MEASUREMENT OF THE ABDOMEN 37 INCHES AND SHE WILL CALL BACK
--- NOTE | 2019-04-23 11:18 | NUR ---
GORAN FROM [facility] STATED THEIR CT SCAN FLIGHT ATTENDANT RAMP ACCOMMODATE ONLY 30 INCHES AND THEY CAN NOT ACCEPT PATIENT.
--- NOTE | 2019-04-23 12:00 | NUR ---
VITALS ARE STABLE. WILL CONTINUE TO MONITOR THE PATIENT.
[2019-04-23] MEDS: HYDROcodone/APAP 5/325 MG 1 TAB TAB PO PRN (13:41)
[2019-04-23] MEDS ORDERED: AZIT500P1 IV (13:55)
[2019-04-23] MEDS ORDERED: ROC1PM IV (13:55)
[2019-04-23] MEDS ORDERED: LAS20I IVP (13:55)
[2019-04-23] MEDS ORDERED: METH40PD15 IVP (13:55)
--- NOTE | 2019-04-23 14:07 | NUR ---
ADMINISTERED PRN PAIN MED AND AMI MEDS. EDUCATED ON SIDE EFFECTS. PATIENT TOLERATING WELL. WILL CONTINUE TO MONITOR THE PATIENT
--- NOTE | 2019-04-23 14:30 | NUR ---
I RECEIVED A CALL FROM [facility] SPOKE WITH [facility] STATED THEY NEED A RETURN AGREEMENT SIGNED BY THE BUSINESS SERVICES OFFICER. THE AGREEMENT SIGNED BY ABILIO CHEATHAM AND FAXED BACK TO [facility].
--- NOTE | 2019-04-23 15:36 | NUR ---
04/23/19 RD INITIAL ASSESSMENT COMPLETED PLEASE REFER TO NUTRITION ASSESSMENT UNDER CARE ACTIVITY FOR ESTIMATED NUTRITIONAL NEEDS. 1. CONTINUE CARDIAC DIET TOLERATED 2. ENCOURAGED PT TO PURCHASE LOW SODIUM CANNED FOODS, INSTEAD OF REGULAR CANNED FOODS 3. ENCOURAGED PT TO READ LABELS OF HOT SAUCES, AND CHOOSE THE PRODUCT THAT CONTAINS < 5% OF SODIUM PER SERVING 3. RD TO FOLLOW-UP 3-5 DAYS, MODERATE RISK [address]
--- NOTE | 2019-04-23 16:00 | NUR ---
PATIENT RELAXING IN BED. NO SIGNS OF DISTRESS. BED IN LOW POSITION. CALL LIGHT WITHIN. WILL CONTINUE TO MONITOR THE PATIENT
--- NOTE | 2019-04-23 16:28 | NUR ---
CHECKED WITH GLENN LAM ,SPOKE WITH [facility] AND ACCEPTED PATIENT AND WAITING FOR THE BED. PER RATNA THEY WILL CALL WHEN THEY HAVE A BED , ARRANGED A TRANSPORT WITH [facility] AND PLACE IT WILL CALL , NOTIFIED HECTOR GEOLOGY INSTRUCTOR.
[2019-04-23] MEDS: NACL 0.9% 250 ML IV SCH (17:28)
--- NOTE | 2019-04-23 17:29 | NUR ---
PATIENT IS HUNGRY. HE WANTS TO ASK DR ROSE IF HE CAN HAVE SOMETHING TO EAT AT THIS TIME. I WILL ASK HER AGAIN BUT PATIENT NPO FOR CT SCAN AT [facility]
--- NOTE | 2019-04-23 18:45 | NUR ---
PER DR CHENG PATIENT STILL NEEDS TO BE NPO. DID BLADDER SCAN, NO URINARY RETENTION AT THIS TIME
--- NOTE | 2019-04-23 19:17 | NUR ---
gave bedside report to night supervisor nurse. patient endorsed in stable condition
--- NOTE | 2019-04-23 19:18 | NUR ---
RECEIVED BEDSIDE REPORT FROM DAY SHIFT NURSE. PATIENT IS AWAKE, ALERT AND ORIENTEDX4. NO SIGNS OF DISTRESS ON BIPAP. SKIN HAS SCABS AND EDEMA BLE, LLE WOUND. ELEVATED LEGS ON PILLOWS. FALL PRECAUTION IN PLACE. IV ON RFA 20G SL. CLEAN, DRY AND INTACT. PATIENT IS CONTINENT, USING URINAL. BED IN LOW POSITION. CALL LIGHT WITHIN REACH. WILL CONTINUE TO MONITOR THE PATIENT.
--- NOTE | 2019-04-23 20:14 | NUR ---
BOB WHITE ROSS FURNACE OPERATOR RADHA CALLED WITH ROOM UNIT 6100, ROOM 6109 BED 1, CALL REPORT TO NURSE AT [phone], CALL RADHA WITH [facility] TIME ([phone] OPTION 2, OPTION 3)
--- NOTE | 2019-04-23 20:23 | NUR ---
PT C/O PAIN ON MARTIN LEG 06/06. GIVEN MORPHINE DR. ORDERED. SOLU-MEDROL AND ROCEPHIN GIVEN DR. ORDERED. PT TOLERATED WELL. WILL CONTINUE TO MONITOR.
--- NOTE | 2019-04-23 21:13 | NUR ---
GIVEN LASIX DR. ORDERED. PT TOLERATED WELL.
--- NOTE | 2019-04-23 21:25 | NUR ---
PT WILL BE TRANSFER TO [facility] FOR HIGHER CARE, PT NEEDS CHEST CT AND PT DOES NOT FIT TO CT SCAN. REPORT GIVEN TO [facility] RN, FEBRUARY.
--- NOTE | 2019-04-23 22:50 | NUR ---
LOULOU CAME AND TOOK PT TO TRANSFER TO [facility] UNDER DR. BLACK, UNIT#[id number], ROOM# 6109 BED1. REMOVE GOWN AND PROVIDE PINK GOWN AND BLANKET. LEFT IV SITE SL. PT ON 3LPM NC. PT ABLE TO AMBULATE FROM [facility] BED TO [facility]. ENDORSED PT TO NIKOLE JAMIL. PT IN STABLE CONDITION.
--- NOTE | 2019-04-24 07:58 | NUR ---
WOUND CONSULT NOT DONE, PT. DISCHARGED.
[2019-04-24] MEDS ORDERED: FUROSEMIDE 40 MG/4 ML VIAL IVP SCH (09:00)
== END 2019-04-23 22:50 | disposition short-term general hospital (02) | DRG 720 ==
LOC: MED 14:36 → MTU 17:09 → UNDOADMIN 17:09 → MTU 17:50
PROVIDERS: ADMIT General Practice; ATTEND General Practice
PROC: 5A09357 Assistance with Respiratory Ventilation, Less than 24 Consecutive Hours, Continuous Positive Airway Pressure (ICD-10-PCS; principal; 2019-04-22)
DX: A41.9 Sepsis, unspecified organism (principal); I21.A1 Myocardial infarction type 2; J96.21 Acute and chronic respiratory failure with hypoxia; I50.43 Acute on chronic combined systolic (congestive) and diastolic (congestive) heart failure; J18.9 Pneumonia, unspecified organism; I27.81 Cor pulmonale (chronic); I11.0 Hypertensive heart disease with heart failure; E44.1 Mild protein-calorie malnutrition; I42.9 Cardiomyopathy, unspecified; E66.01 Morbid (severe) obesity due to excess calories; G47.33 Obstructive sleep apnea (adult) (pediatric); F17.210 Nicotine dependence, cigarettes, uncomplicated; E86.0 Dehydration; J96.22 Acute and chronic respiratory failure with hypercapnia; J44.1 Chronic obstructive pulmonary disease with (acute) exacerbation; E83.42 Hypomagnesemia; Z68.41 Body mass index [BMI] 40.0-44.9, adult; Z79.899 Other long term (current) drug therapy; Z91.19 Patient's noncompliance with other medical treatment and regimen; Z82.3 Family history of stroke; Z82.49 Family history of ischemic heart disease and other diseases of the circulatory system
CPT/HCPCS: 36415; 36600; 71045; 80048; 80053; 80305; 81003; 82803; 83036; 83605; 83690; 83735; 83880; 84100; 84443; 84484; 85025; 85610; 85730; 87040; 87081; 93005; 93925; 93970; 94640; 94660; 96365; 96375; 97110; 97161-GP; 97530; 99291; 99292; J0696; J1940; J2270; J2405; J2920; J3475; J3490; J7030; J7060; J7613; J7620; Q0092

== ENCOUNTER 2019-04-24 17:30 | Inpatient (IN) | payer MEDICAID ==
[~2019-04-24] VITALS: Ht 185.4 cm; Wt 156.5 kg
--- NOTE | 2019-04-24 17:23 | NUR ---
RECEIVED PT FROM [facility] TRANSPORT DIRECT ADMIT. PT LUNGS CLEAR BREATHING ON ROOM AIR. PT HAS BILATERAL SCABBING TO FEET AND LOWER EXTREMITIES. PT AMBULATING WITH NO ISSUE AND STEADY GAIT TO BED AND STANDING UP FINE. PT HAS NO IV. CHART OF PATIENT RECORDS GIVEN TO ME AND MRSA SWAB OBTAINED.
[~2019-04-24 17:30] MED LIST: AZIT500P1 IV; LAS20I IVP; LISI-420 PO; METH40PD15 IVP; ROC1PM IV
--- NOTE | 2019-04-24 17:59 | NUR ---
STARTED IV ON PATIENT RIGHT WRIST 22 GAUGE FLUSHING AND ASPIRATING BLOOD FINE AT THIS TIME.
[2019-04-24] MEDS ORDERED: ACETAMINOPHEN 325 MG TAB PO PRN (18:10)
[2019-04-24] MEDS ORDERED: DOCUSATE SODIUM 100 MG GELCAP PO PRN (18:10)
[2019-04-24] MEDS ORDERED: ALBUTEROL SULFATE/IPRATROPIU 3 ML SOL IH PRN (18:10)
[2019-04-24] MEDS ORDERED: ONDANSETRON 4 MG/2 ML VIAL IM/IVP PRN (18:10)
[2019-04-24 19:04] LABS: BASOPHILS % (AUTO) 0.2 % (0.0-2.0); HEMATOCRIT 56.5 % (36-52); LYMPHOCYTES # (AUTO) 0.8 K/uL (2.0-11.5); LYMPHOCYTES % (AUTO) 8.2 % (20.5-51.1); MEAN CORPUSCULAR HEMOGLOBIN 29 pg (27-31); MEAN CORPUSCULAR HGB CONC 32 g/dL (33-37); MEAN CORPUSCULAR VOLUME 91.4 fL (80-94); MONOCYTES # (AUTO) 1.1 K/uL (0.8-1.0); MONOCYTES % (AUTO) 11.1 % (1.7-9.3); NEUTROPHILS # (AUTO) 7.7 K/uL (1.8-7.7); NEUTROPHILS % (AUTO) 80.5 % (42.2-75.2); PLATELET COUNT (AUTO) 172 K/uL (140-450); RED BLOOD CELL COUNT(AUTO) 6.18 MIL/uL (4.20-6.10); RED CELL DISTRIBUTION WIDTH 17.6 % (11.6-13.7); WHITE BLOOD COUNT (AUTO) 9.5 K/uL (4.8-10.8)
--- NOTE | 2019-04-24 19:05 | NUR ---
GAVE BEDSIDE REPORT TO NIGHT NURSE PT IN STABLE CONDITION BREATHING UNLABORED.
--- NOTE | 2019-04-24 19:06 | NUR ---
REPORT RECEIVED FROM AM NURSE AT BEDSIDE. PT IN STABLE CONDITION. AAOX4. INTRODUCED SELF TO PT. BOARD UPDATED. NO COMPLAINTS OF PAIN. NO SOB. AFEBRILE. IV SITE R WRIST 22G SL PATENT AND INTACT. SKIN WARM, DRY, AND INTACT WITH NO OPEN WOUNDS. BED LOCKED IN LOW POSITION. CALL CHRISTINE WITHIN REACH. SAFETY PRECAUTION IN PLACE. ALL NEEDS MET AT THIS TIME.
[2019-04-24] MEDS ORDERED: AZITHROMYCIN 250 MG in DEXTROSE 5% 250 ML IV SCH (19:15)
[2019-04-24] MEDS ORDERED: FUROSEMIDE 100 MG/10 ML VIAL IV SCH (19:15)
[2019-04-24 19:20] LABS: ALBUMIN 3.3 g/dL (3.4-5.0); ANION GAP 13.3 (8-16); MAGNESIUM 2.3 mg/dL (1.8-2.4); PHOSPHORUS 3.6 mg/dL (2.5-4.9); POTASSIUM 5.3 mmol/L (3.5-5.1)
[2019-04-24] MEDS ORDERED: ALBUTEROL SULFATE/IPRATROPIU 3 ML SOL IH ONE (19:24)
--- NOTE | 2019-04-24 19:30 | NUR ---
PT WANTS TO SHOWER. APPROVED OF ACTIVITY. WILL WRAP IV AND READY UP STUFF FOR PATIENT TO SHOWER.
--- NOTE | 2019-04-24 19:35 | NUR ---
LAB CALLED IN FOR CRITICAL VALUE OF TROPONIN 0.155. MD NOTIFIED. NO CHANGE IN ORDERS DUE TO VALUE DECREASING.
[2019-04-24] MEDS ORDERED: CALAMINE/ZINC OXIDE 8% 118 ML BTL TP ONE (19:55)
[2019-04-24 20:00] VITALS: BP 123/78
--- NOTE | 2019-04-24 20:02 | NUR ---
CPAP MACHINE PLACED IN PATIENTS ROOM. PATIENT WILL CALL WHEN HE'S READY TO WEAR IT
[2019-04-24] MEDS ORDERED: INSULIN REGULAR, HUMAN 100 UNIT/ML VIAL IVP SCH (20:15)
[2019-04-24] MEDS ORDERED: DEXTROSE 50% 50 ML SYR IVP SCH (20:15)
[2019-04-24] MEDS ORDERED: DEXTROSE 50% 50 ML SYR IVP PRN (20:15)
[2019-04-24] MEDS ORDERED: INSULIN LISPRO SLIDING SCALE 100 UNITS/ML VIAL SUBQ PRN (20:15)
[2019-04-24] MEDS: BLOOD GLUCOSE MONITORING 1 DEV DEV FS SCH (21:00)
[2019-04-24] MEDS ORDERED: AZITHROMYCIN 500 MG INJ VIAL IV ONE (21:54)
[2019-04-24] MEDS ORDERED: cefTRIAXone 1,000 MG VIAL ONE (21:55)
--- NOTE | 2019-04-24 21:58 | NUR ---
EDY DARDEN AND DENZEL. SOLUMEDROL GIVEN IVP. HEPARIN GIVEN SUBQ. BS 132. NO INSULIN COVERAGE NEEDED. PT TOLERATED WELL.
[2019-04-24] MEDS: methylPREDNISolone SS 40 MG/ML VIAL IVP SCH (22:01)
--- NOTE | 2019-04-24 22:23 | NUR ---
LASIX GIVEN IVP. PT TOLERATED WELL.
--- NOTE | 2019-04-24 22:33 | NUR ---
AZITHROMYCIN HUNG AND RUNNING. PT TOLERATED WELL.
--- NOTE | 2019-04-24 22:40 | NUR ---
PT IV INFILTRATED. WILL INSERT NEW IV.
--- NOTE | 2019-04-24 23:00 | NUR ---
NEW IV INSERTED R MEGHAN 22G. 1 ATTEMPT TAKEN. Aureliano RODRIGUEZ 22G D/C. CANNULA INTACT. Addendum: 04/25/19 at 0052 by Aries Stewart RN AZITHROMYCIN CONTINUED.
[2019-04-24 23:26] LABS: ANION GAP 11.4 (8-16); CARBON DIOXIDE 33.4 mmol/L (21-32); POTASSIUM 4.8 mmol/L (3.5-5.1)
[2019-04-25] VITALS: BP 126/72
[2019-04-25 00:10] LABS: APPEARANCE,URINE CLEAR (CLEAR); BILIRUBIN,URINE NEGATIVE (NEGATIVE); BLOOD, URINE NEGATIVE (NEGATIVE); COLOR,URINE YELLOW (YELLOW); LEUKOCYTE ESTERASE ,URINE NEGATIVE (NEGATIVE); NITRITE, URINE NEGATIVE (NEGATIVE); UGLUCOSE NEGATIVE (NEGATIVE)
--- NOTE | 2019-04-25 00:11 | NUR ---
CPAP PLACED ON PATIENT. SIZE LARGE MASK. PRESSURE OF 10CM.
--- NOTE | 2019-04-25 00:50 | NUR ---
PT SLEEPING COMFORTABLY IN BED. NO S/S OF DISTRESS NOTED. NO COMPLAINTS OF PAIN. NO SOB. AFEBRILE. WILL CONTINUE TO MONITOR.
--- NOTE | 2019-04-25 02:30 | NUR ---
PT WOKE UP VERY CONFUSED. ASKED WHAT HE WAS DOING HERE. EXPLAINED TO HIM THE REASON FOR HIS STAY IN THE HOSPITAL. MD NOTIFIED OF SUDDEN CONFUSION. MD IN TO SPEAK WITH PATIENT. WILL REEVALUATE IN THE MORNING.
--- NOTE | 2019-04-25 02:50 | NUR ---
CRITICAL LAB VALUE CALLED IN TROPONIN 0.100. NOTIFIED. NO CHANGE IN ORDERS.
[2019-04-25 04:00] VITALS: BP 138/92
--- NOTE | 2019-04-25 04:00 | NUR ---
PT SLEEPING COMFORTABLY IN BED BUT AROUSABLE. VS STABLE. NO S/S OF DISTRESS NOTED. RESPIRATIONS EVEN, UNLABORED, AND WNL. WILL CONTINUE TO MONITOR.
[2019-04-25] MEDS: BLOOD GLUCOSE MONITORING 1 DEV DEV FS SCH (06:18)
--- NOTE | 2019-04-25 06:18 | NUR ---
BS 132. NO INSULIN COVERAGE NEEDED.
[2019-04-25 06:46] LABS: ANION GAP 10.3 (8-16); CARBON DIOXIDE 34.3 mmol/L (21-32); POTASSIUM 4.6 mmol/L (3.5-5.1)
--- NOTE | 2019-04-25 07:00 | NUR ---
RECEIVED BEDSIDE REPORT FROM NIGHT NURSE. PT SIGNED AMA AND IS AWARE OF RISKS. MD ALSO SIGNED AMA AND SPOKE WITH PATIENT AND IS AWARE. PT IS AOX4 WITH A LEFT FOREARM IV THAT IS ASYMPTOMATIC AND PATENT SALINE TKO. PT HAS BILATERAL FEET AND ANKLE DRY GAUZE BANDAGES INTACT WITH NO DRAINAGE OR SMELL. ALL SAFETY MEASURES IN PLACE AND CALL LIGHT WITHIN REACH.
--- NOTE | 2019-04-25 07:13 | NUR ---
SATURATION 88% ON ROOM AIR POST HHN THERAPY NO SUPPLEMENTAL OXYGEN ADMINISTRATION PER JOSHUA/RN AT BEDSIDE PATIENT GOING AMA AT OR AROUND 0830
[2019-04-25 07:37] LABS: BASOPHILS % (AUTO) 0.3 % (0.0-2.0); HEMATOCRIT 54.4 % (36-52); HEMOGLOBIN 17.3 g/dL (12.0-18.0); LYMPHOCYTES # (AUTO) 0.6 K/uL (2.0-11.5); LYMPHOCYTES % (AUTO) 7.4 % (20.5-51.1); MEAN CORPUSCULAR HEMOGLOBIN 29 pg (27-31); MEAN CORPUSCULAR HGB CONC 32 g/dL (33-37); MEAN CORPUSCULAR VOLUME 91.4 fL (80-94); MONOCYTES # (AUTO) 0.9 K/uL (0.8-1.0); MONOCYTES % (AUTO) 12.3 % (1.7-9.3); NEUTROPHILS # (AUTO) 6.1 K/uL (1.8-7.7); PLATELET COUNT (AUTO) 157 K/uL (140-450); RED BLOOD CELL COUNT(AUTO) 5.96 MIL/uL (4.20-6.10); RED CELL DISTRIBUTION WIDTH 17.7 % (11.6-13.7); WHITE BLOOD COUNT (AUTO) 7.6 K/uL (4.8-10.8)
[2019-04-25 08:00] VITALS: BP 146/83
[2019-04-25] MEDS: methylPREDNISolone SS 40 MG/ML VIAL IVP SCH (08:45)
[2019-04-25] MEDS ORDERED: LISINOPRIL 20 MG TAB PO SCH (09:00)
--- NOTE | 2019-04-25 09:05 | NUR ---
PATIENT LEFT HOSPITAL AMA. AMA SIGNED BY PATIENT AND DOCTOR. IV REMOVED WITH CATHETER TIP INTACT AND GAUZE WITH BANDAID APPLIED WITH NO ACTIVE BLEEDING AT TIME OF DEPARTURE. PT LEFT HOSPITAL IN [facility] AND TRANSPORTATION HOME BY HIS DAUGHTER. ID BANDS REMOVED AND DISPOSED OF PROPERLY IN SHREDDER. SPOKE WITH DR. RUBI AT 0900 FOR PATIENT'S QUESTION REGARDING IF HIS MEDICATION PRESCRIPTIONS HAD BEEN INCREASED AND SENT ELECTRONICALLY TO PHARMACY. DID THIS AND CONFIRMED WITH DR RUBI THEY HAD AND TOLD PATIENT. ALSO ADMINISTERED MORNING MEDICATION AT 0850 TO PATIENT EXCEPT IV ANTIBIOTIC PATIENT REFUSED DUE TO IT TAKING TO MUCH TIME POTENTIALLY FOR HIM AND HE WANTED TO LEAVE AMA BY AROUND 0900.
--- NOTE | 2019-04-27 08:27 | NUR ---
SYLVIA CONSULT NOT DONE. PT. TRE
== END 2019-04-25 09:05 | disposition left against medical advice (07) | DRG 190 ==
LOC: MTU 17:30
PROVIDERS: ADMIT General Practice; ATTEND General Practice
DX: I21.A1 Myocardial infarction type 2 (principal); I50.43 Acute on chronic combined systolic (congestive) and diastolic (congestive) heart failure; I27.20 Pulmonary hypertension, unspecified; E66.01 Morbid (severe) obesity due to excess calories; E44.1 Mild protein-calorie malnutrition; E87.5 Hyperkalemia; M34.9 Systemic sclerosis, unspecified; I11.0 Hypertensive heart disease with heart failure; J44.1 Chronic obstructive pulmonary disease with (acute) exacerbation; Z79.899 Other long term (current) drug therapy; G47.33 Obstructive sleep apnea (adult) (pediatric); Z96.649 Presence of unspecified artificial hip joint; F17.210 Nicotine dependence, cigarettes, uncomplicated; Z68.42 Body mass index [BMI] 45.0-49.9, adult
CPT/HCPCS: 36415; 80048; 80053; 81003; 82948; 83735; 83880; 84100; 84484; 85025; 87081; 94640; 94660; J0456; J0696; J1644; J1940; J2920; J7030; J7060; J7620